=== PATIENT | female | born 1940 | race Caucasian/White ===

== ENCOUNTER 2016-03-28 09:51 | Outpatient (CLI) | payer MEDICARE, BC, OTHER | END 2016-03-28 09:52 | disposition home or self-care (01) | DX: I25.10 Atherosclerotic heart disease of native coronary artery without angina pectoris (principal); I10 Essential (primary) hypertension; E03.9 Hypothyroidism, unspecified; E78.5 Hyperlipidemia, unspecified ==

== ENCOUNTER 2016-04-25 13:18 | Outpatient (CLI) | payer MEDICARE, BC, OTHER | END 2016-04-25 13:19 | disposition home or self-care (01) | DX: Z12.31 Encounter for screening mammogram for malignant neoplasm of breast (principal) ==

== ENCOUNTER 2016-09-30 10:02 | Emergency (ER) | payer MEDICARE, BC, OTHER ==
[2016-09-30 10:14] VITALS: BP 162/90
--- NOTE | 2016-09-30 11:06 | XRAY Preliminary Report ---
Exam: XR Ribs w/PA Chest RT IMPRESSION: 1. Mild chronic scar at the left lung base. 2. Otherwise, unremarkable right rib radiography. [facility] SITE ID: [id number]
--- NOTE | 2016-09-30 11:08 | XRAY Report ---
EXAM: RIGHT RIB RADIOGRAPHY EXAM DATE: 09/30/2016 10:37 AM. CLINICAL HISTORY: Right side rib pain after fall COMPARISON: Chest radiography from 02/10/2016. TECHNIQUE: 1 view of the chest and 2 views of the ribs. FINDINGS: Bones: Normal. No fracture or bone lesion. Lungs: Mild chronic scar at the left lung base which is unchanged. No pneumothorax or pleural effusio n. No focal consolidation. Mediastinum: Heart and mediastinal contours are unremarkable. Other: None. IMPRESSION: 1. Mild chronic scar at the left lung base. 2. Otherwise, unremarkable right rib radiography. [facility] Referring Provider Line: [phone] SITE ID: [id number]
--- NOTE | 2016-09-30 12:57 | ED Physician Documentation ---
History of Present Illness - Stated complaint Stated Complaint: GLF - Chief complaint Chief Complaint: General - History obtained from History obtained from: Patient - History of Present Illness Timing: Other (She fell off her deck last night while gardening, her main complaint is right lower chest wall pain, she wonders if she broke a rib. She has pain with deep breathing. She also injured her right wrist. No other injuries.) Review of Systems Constitutional: denies: Fever, Chills Throat: denies: Dental pain / toothache, Sore throat Cardiac: denies: Palpitations, Pedal edema, Calf pain Respiratory: denies: Dyspnea, Cough PD PAST MEDICAL HISTORY - Past Medical History Cardiovascular: Deep vein thrombosis, [place] Respiratory: Other Endocrine/Autoimmune: HyPOthyroidism GI: GERD, Diverticulitis : None HEENT: Chronic hearing loss Psych: Anxiety, Claustrophobia Musculoskeletal: Osteoarthritis Derm: None - Past Surgical History Past Surgical History: Yes General: Cholecystectomy, Bowel surgery, Colonoscopy /APPLICATION HELPER: Hysterectomy Cardiovascular: Angioplasty HEENT: Cataracts - Present Medications Home Medications: Ambulatory Orders Medication Instructions Recorded Confirmed Aspirin Chewable [St [place] 81 mg PO DAILY 12/31/12 09/30/16 Aspirin] Buspirone HCl 10 mg PO TID 12/31/12 09/30/16 Escitalopram [Lexapro] 10 mg PO BID 12/31/12 09/30/16 LORazepam [Ativan] 1 mg PO ONCE PRN 12/31/12 09/30/16 Metoprolol Succinate [Toprol Xl] 25 mg PO BID 12/31/12 09/30/16 Simvastatin [Zocor] 20 mg PO QPM 12/31/12 09/30/16 Levothyroxine [Synthroid] 50 mcg PO QDAC 01/01/13 09/30/16 Omeprazole 40 mg PO DAILY 01/01/13 09/30/16 Timolol 0.5% Ophth Drops [Timoptic] 1 drops OPTH BID 01/01/13 09/30/16 Travoprost [Travatan Z] 0.004 ml OP DAILY 01/01/13 09/30/16 Oxycodone HCl/Acetaminophen 1 - 2 tab PO Q4H PRN #15 tablet 09/30/16 [Percocet 5-325 mg Tablet] Potassium Chloride [Micro-K] 10 meq PO PRN PRN 09/30/16 09/30/16 hydroCHLOROthiazide [Hydrodiuril] 25 mg PO PRN PRN 09/30/16 09/30/16 - Allergies Allergies/Adverse Reactions: Allergies Allergy/AdvReac Type Severity Reaction Status Date / Time phenytoin sodium * Allergy Intermediate Rash Unverified 12/31/12 13:03 [From Dilantin] phenytoin sodium extended * Allergy Intermediate Rash Unverified 12/31/12 13:02 [From Dilantin] Sulfa (Sulfonamide Allergy Intermediate Rash Unverified 12/31/12 13:02 Antibiotics) - Social History Does the pt smoke?: No Smoking Status: Unknown if ever smoked Does the pt drink ETOH?: No Does the pt have substance abuse?: No PD ED PE NORMAL - Vitals Vital signs reviewed: Yes - General General: Alert and oriented X 3, No acute distress - Neck Neck: Supple, no meningeal sign, No bony TTP - Respiratory Respiratory: No respiratory distress, Clear bilaterally, Other (Tender right lower anterior chest wall, no abdominal tenderness.) - Extremities Extremities: Other (Tender to the right distal radius more than the snuffbox with good range of motion at the wrist and no pain with axial loading of the right thumb.) - Neuro Neuro: Alert and oriented X 3, Normal speech - Psych Psych: Normal mood, Normal affect Results - Vitals Vitals: Vital Signs - 24 hr 09/30/16 10:10 Temperature 35.8 C L Heart Rate 82 Respiratory 22 Rate Blood Pressure 162/90 H O2 Saturation 95 Oxygen O2 Source Room air - Rads (name of study) R ribs and R wrist Radiology: EMP read contemporaneously (All neg) Departure - Departure Disposition: 01 Home, Self Care Clinical Impression: Right wrist sprain Qualifiers: Encounter type: initial encounter Qualified Code(s): S63.501A - Unspecified sprain of right wrist, initial encounter Contusion of right chest wall Qualifiers: Encounter type: initial encounter Qualified Code(s): S20.211A - Contusion of right front wall of thorax, initial encounter Fall Qualifiers: Encounter type: initial encounter Qualified Code(s): W19.XXXA - Unspecified fall, initial encounter Condition: Good Record reviewed to determine appropriate education?: Yes Instructions: ED Contusion Chest Wall Prescriptions: Oxycodone HCl/Acetaminophen [Percocet 5-325 mg Tablet] 1 - 2 tab PO Q4H PRN #15 tablet PRN Reason: Pain Comments: Call your doctor to arrange a follow-up appointment, make the next available appointment. In the interim, return anytime if worse or if new symptoms develop. Your blood pressure was elevated today on check into the emergency department. This does not mean that you have hypertension, it is a common phenomenon to come to the emergency department and have elevated blood pressure. I recommend that she see her primary care physician within the week to have it rechecked when you are feeling better. Do not drink or drive while taking narcotic pain medication. Note that many narcotic pain relievers also contain Tylenol/acetaminophen. Please ensure that your total dose of acetaminophen from all sources does not exceed 3 g (3000 mg) per day. You may get constipated while on this medication. Take a stool softener such as Colace twice a day while you are on it. Also add an [id number]-[id number] laxative such as senna or MiraLAX on any day that you do not have a bowel movement. If you received a narcotic pain medication or sedative while in the emergency department, do not drive for the next 24 hours.
--- NOTE | 2016-09-30 13:25 | XRAY Preliminary Report ---
Exam: XR Wrist 4 View RT IMPRESSION: Normal wrist radiography. [facility] SITE ID: [id number]
--- NOTE | 2016-09-30 13:32 | XRAY Report ---
EXAM: RIGHT WRIST RADIOGRAPHY EXAM DATE: 09/30/2016 12:58 PM. CLINICAL HISTORY: Pain after injury. COMPARISON: None. TECHNIQUE: 4 views. FINDINGS: Bones: Normal. No fractures or bone lesions. Joints: Normal. No subluxations. Soft Tissues: Normal. No soft tissue swelling. IMPRESSION: Normal wrist radiography. [facility] Referring Provider Line: [phone] SITE ID: [id number]
== END 2016-09-30 14:10 | disposition home or self-care (01) ==
LOC: ED 10:02
DX: S63.501A Unspecified sprain of right wrist, initial encounter (principal); S20.211A Contusion of right front wall of thorax, initial encounter; W01.0XXA Fall on same level from slipping, tripping and stumbling without subsequent striking against object, initial encounter; Y93.H2 Activity, gardening and landscaping; I25.2 Old myocardial infarction; R03.0 Elevated blood-pressure reading, without diagnosis of hypertension; Z86.718 Personal history of other venous thrombosis and embolism; Z79.82 Long term (current) use of aspirin; Z98.61 Coronary angioplasty status
CPT/HCPCS: 99283

== ENCOUNTER 2017-01-22 13:41 | Outpatient (CLI) | payer MEDICARE, BC, OTHER | END 2017-01-22 13:42 | disposition home or self-care (01) | LOC: DI 13:41 | PROVIDERS: ATTEND Family Medicine | DX: R06.09 Other forms of dyspnea (principal); I25.10 Atherosclerotic heart disease of native coronary artery without angina pectoris; G47.9 Sleep disorder, unspecified; I77.810 Thoracic aortic ectasia | CPT/HCPCS: 93306 ==

== ENCOUNTER 2017-01-22 13:43 | Outpatient (CLI) | payer MEDICARE, BC, OTHER ==
[2017-01-22] MEDS ORDERED: IOPAMIDOL-300 100 ML VIAL ONE (14:16)
[2017-01-22] MEDS ORDERED: IOPAMIDOL-300 100 ML VIAL IVP ONE (15:10)
--- NOTE | 2017-01-23 10:06 | CT Report ---
CT PULMONARY ANGIOGRAM: 01/22/2017 CLINICAL INDICATION: Dyspnea on exertion, history of pulmonary embolus. TECHNIQUE: Axial CT images of the chest were obtained with 80 mL Isovue-300 intravenously. Sagittal and coronal 3D reconstructions were performed. In accordance with CT protocol optimization, one or more of the following dose reduction techniques were utilized for this exam: automated exposure control, adjustment of mA and/or KV based on patient size, or use of iterative reconstructive technique. FINDINGS: The heart is not enlarged. The thoracic aorta demonstrates minimal atherosclerotic disease. There is segmental and subsegmental pulmonary embolus seen in the right upper lobe. The lungs demonstrate scattered atelectasis. No focal consolidation, effusion, or pneumothorax is present. Limited evaluation of upper abdominal structures demonstrates normal adrenal glands. Osseous structures demonstrate degenerative changes. IMPRESSION: SEGMENTAL AND SUBSEGMENTAL PULMONARY EMBOLI IN THE RIGHT UPPER LOBE. CRITICAL RESULT: RESULTS CALLED TO DR. DUTTON ON 01/23/2017 AT 10:40 A.M. JOB #: [id number] EXT JOB #: [id number] [facility]
== END 2017-01-22 13:44 | disposition home or self-care (01) ==
LOC: DI 13:43
PROVIDERS: ATTEND Family Medicine
DX: I26.99 Other pulmonary embolism without acute cor pulmonale (principal); R06.09 Other forms of dyspnea; I25.10 Atherosclerotic heart disease of native coronary artery without angina pectoris; G47.9 Sleep disorder, unspecified; I77.810 Thoracic aortic ectasia
CPT/HCPCS: 71260; 93306; Q9967

== ENCOUNTER 2017-04-21 12:18 | Outpatient (CLI) | payer MEDICARE, BC, OTHER ==
--- NOTE | 2017-04-22 17:27 | Mammography Report ---
DATE OF SERVICE: 04/21/2017 DIGITAL SCREENING MAMMOGRAM: 04/21/2017 CLINICAL INDICATION: A 77-year-old with history of benign cyst excision for screening. COMPARISON: 04/2016, 04/2015, 04/2013, 04/2012, 04/2010. TECHNIQUE: Routine CC and MLO projections were obtained of the breasts. FINDINGS: The breasts demonstrate scattered fibroglandular densities bilaterally. Coarse, typically benign calcifications are present. No suspicious masses, clustered microcalcifications, or regions of architectural distortion are identified. IMPRESSION: BENIGN FINDINGS. RECOMMENDATIONS: Routine annual screening unless otherwise clinically indicated. BIRADS category 2 benign findings. STANDARD QUALIFYING STATEMENTS 1. This examination was reviewed with the aid of Computed-Aided Detection (CAD). 2. A negative or benign imaging report should not delay biopsy if clinically suspicious findings are present. Consider surgical consultation if warranted. More than 5% of cancers are not identified by imaging. 3. Dense breasts may obscure an underlying neoplasm. TD: 04/22/2017 17:25
== END 2017-04-21 12:19 | disposition home or self-care (01) ==
LOC: DI 12:18
PROVIDERS: ATTEND Family Medicine
DX: Z12.31 Encounter for screening mammogram for malignant neoplasm of breast (principal)
CPT/HCPCS: 77067

== ENCOUNTER 2017-12-15 07:01 | Day surgery (SDC) | payer MEDICARE, BC, OTHER ==
[2017-12-15] MEDS ORDERED: LACTATED RINGERS 1,000 ML IV ONE (07:09)
[2017-12-15] MEDS ORDERED: fentaNYL 250 MCG/5 ML VIAL IVP ONE (08:40)
[2017-12-15] MEDS ORDERED: MIDAZOLAM 2 MG/2 ML VIAL IVP ONE (08:40)
[2017-12-15 09:50] VITALS: BP 110/64
== END 2017-12-15 07:02 | disposition home or self-care (01) ==
LOC: SDS 07:01
PROVIDERS: ATTEND Surgery
PROC: 0DJD8ZZ Inspection of Lower Intestinal Tract, Via Natural or Artificial Opening Endoscopic (ICD-10-PCS; principal; 2017-12-15 08:30)
DX: Z12.11 Encounter for screening for malignant neoplasm of colon (principal); K64.8 Other hemorrhoids; K57.30 Diverticulosis of large intestine without perforation or abscess without bleeding; Z86.010 Personal history of colon polyps; Z85.038 Personal history of other malignant neoplasm of large intestine; Z79.01 Long term (current) use of anticoagulants; Z80.0 Family history of malignant neoplasm of digestive organs; Z87.891 Personal history of nicotine dependence; E66.9 Obesity, unspecified; Z68.35 Body mass index [BMI] 35.0-35.9, adult
CPT/HCPCS: G0105; J3010; J7120

== ENCOUNTER 2018-11-19 08:00 | Outpatient (CLI) | payer MEDICARE, BC, OTHER ==
[2018-11-19 12:44] LABS: BASOPHILS # (AUTO) 0.1 10^3/uL (0.0-0.1); EOSINOPHILS # (AUTO) 0.3 10^3/uL (0.0-0.7); EOSINOPHILS % (AUTO) 4.7 %; HGB - HEMOGLOBIN 15.3 g/dL (12.0-16.0); LYMPHOCYTES # (AUTO) 1.9 10^3/uL (1.5-3.5); LYMPHOCYTES % (AUTO) 26.9 %; MEAN CORPUSCULAR HEMOGLOBIN 31.7 pg (27.0-31.0); MEAN CORPUSCULAR HGB CONC 32.3 g/dL (32.0-36.0); MEAN CORPUSCULAR VOLUME 98.1 fL (81.0-99.0); MEAN PLATELET VOLUME 11.5 fL (7.9-10.8); MONOCYTES # (AUTO) 0.7 10^3/uL (0.0-1.0); MONOCYTES % (AUTO) 9.5 %; NEUTROPHILS # (AUTO) 4.1 10^3/uL (1.5-6.6); NEUTROPHILS % (AUTO) 57.3 %; PLT - PLATELET COUNT 189 10^3/uL (130-450); RED BLOOD COUNT 4.82 10^6/uL (4.20-5.40); RED CELL DISTRIBUTION WIDTH 13.3 % (12.0-15.0); WHITE BLOOD COUNT 7.2 x10^3/uL (4.8-10.8)
[2018-11-19 13:08] LABS: ALBUMIN 4.1 g/dL (3.2-5.5); ALBUMIN/GLOBULIN RATIO 1.7 (1.0-2.2); ALKALINE PHOSPHATASE 56 IU/L (42-121); ALT ALANINE AMINOTRANSFERASE 46 IU/L (10-60); AST ASPARTATE AMINOTRANSFERASE 26 IU/L (10-42); BILIRUBIN,TOTAL 0.7 mg/dL (0.2-1.0); BUN - BLOOD UREA NITROGEN 21 mg/dL (6-20); CALCIUM 9.4 mg/dL (8.5-10.3); CARBON DIOXIDE - CO2 28 mmol/L (21-32); CHLORIDE 103 mmol/L (101-111); CHOL/HDL RATIO 3.2 (<4.4); CHOLESTEROL 163 mg/dL; CREATININE 0.8 mg/dL (0.4-1.0); GFR - MDRD 69 (>89); GLUCOSE 108 mg/dL (70-100); HDL CHOLESTEROL 51 mg/dL; LDL CHOLESTEROL,CALCULATED 58 mg/dL; LDL/HDL RATIO 1.1 (<4.4); SODIUM 141 mmol/L (135-145); TOTAL PROTEIN 6.5 g/dL (6.7-8.2); VLDL CHOLESTEROL 54 mg/dL
== END 2018-11-19 23:59 | disposition home or self-care (01) ==
LOC: LAB.WCP 08:00
PROVIDERS: ATTEND Family Medicine
DX: I10 Essential (primary) hypertension (principal); E88.81 Metabolic syndrome and other insulin resistance; I25.10 Atherosclerotic heart disease of native coronary artery without angina pectoris; E78.5 Hyperlipidemia, unspecified
CPT/HCPCS: 36415; 80053; 80061; 83721; 84443; 85025

== ENCOUNTER 2018-11-25 11:59 | Outpatient (CLI) | payer MEDICARE, BC, OTHER ==
--- NOTE | 2018-11-26 10:29 | XRAY Report ---
Reason: KNEE PAIN,RIGHT..STANDING Procedure Date: 11/25/2018 Accession Number: [id number] / [id number] Procedure: XR - Knee 2 View RT CPT Code: FULL RESULT: EXAM: RIGHT KNEE RADIOGRAPHY EXAM DATE: 11/25/2018 01:26 PM. CLINICAL HISTORY: KNEE Pain, right. . STANDING. COMPARISON: None. TECHNIQUE: 2 views. FINDINGS: Bones: Normal. No fractures or bone lesions. Joints: Moderate tricompartment degenerative changes with joint space loss and osteophytosis. No effusion. No subluxations. Soft Tissues: Normal. No soft tissue swelling. IMPRESSION: Moderate tricompartment degenerative changes. [facility]
== END 2018-11-25 12:00 | disposition home or self-care (01) ==
LOC: DI 11:59
PROVIDERS: ATTEND Family Medicine
DX: M17.11 Unilateral primary osteoarthritis, right knee (principal)

== ENCOUNTER 2020-04-07 08:36 | Outpatient (CLI) | payer MEDICARE, BC, OTHER ==
[2020-04-07 11:44] LABS: BASOPHILS # (AUTO) 0.1 10^3/uL (0.0-0.1); BASOPHILS % (AUTO) 0.8 %; EOSINOPHILS # (AUTO) 0.4 10^3/uL (0.0-0.7); EOSINOPHILS % (AUTO) 4.8 %; HGB - HEMOGLOBIN 15.4 g/dL (12.0-16.0); LYMPHOCYTES # (AUTO) 1.7 10^3/uL (1.5-3.5); LYMPHOCYTES % (AUTO) 20.2 %; MEAN CORPUSCULAR HEMOGLOBIN 29.4 pg (27.0-31.0); MEAN CORPUSCULAR HGB CONC 30.6 g/dL (32.0-36.0); MEAN CORPUSCULAR VOLUME 96.2 fL (81.0-99.0); MEAN PLATELET VOLUME 11.3 fL (7.9-10.8); MONOCYTES # (AUTO) 0.6 10^3/uL (0.0-1.0); MONOCYTES % (AUTO) 7.2 %; NEUTROPHILS # (AUTO) 5.7 10^3/uL (1.5-6.6); NEUTROPHILS % (AUTO) 66.5 %; PLT - PLATELET COUNT 208 10^3/uL (130-450); RED BLOOD COUNT 5.23 10^6/uL (4.20-5.40); RED CELL DISTRIBUTION WIDTH 14.3 % (12.0-15.0); WHITE BLOOD COUNT 8.5 x10^3/uL (4.8-10.8)
[2020-04-07 12:27] LABS: ALBUMIN/GLOBULIN RATIO 1.6 (1.0-2.2); ALKALINE PHOSPHATASE 62 IU/L (42-121); ALT ALANINE AMINOTRANSFERASE 40 IU/L (10-60); AST ASPARTATE AMINOTRANSFERASE 27 IU/L (10-42); BILIRUBIN,TOTAL 0.9 mg/dL (0.2-1.0); BUN - BLOOD UREA NITROGEN 19 mg/dL (6-20); CALCIUM 9.5 mg/dL (8.5-10.3); CARBON DIOXIDE - CO2 28 mmol/L (21-32); CHLORIDE 104 mmol/L (101-111); CHOL/HDL RATIO 2.9 (<4.4); CHOLESTEROL 149 mg/dL; CREATININE 0.9 mg/dL (0.4-1.0); GLUCOSE 159 mg/dL (70-100); HDL CHOLESTEROL 51 mg/dL; LDL CHOLESTEROL,CALCULATED 56 mg/dL; LDL/HDL RATIO 1.1 (<4.4); TOTAL PROTEIN 6.5 g/dL (6.7-8.2); VLDL CHOLESTEROL 42 mg/dL
[2020-04-07 13:33] LABS: FREE T4 (FREE THYROXINE) 0.85 ng/dL (0.58-1.64)
== END 2020-04-07 23:59 | disposition home or self-care (01) ==
LOC: LAB.WCP 08:36
PROVIDERS: ATTEND Internal Medicine
DX: D68.59 Other primary thrombophilia (principal); R09.02 Hypoxemia; E88.81 Metabolic syndrome and other insulin resistance; I10 Essential (primary) hypertension; E03.9 Hypothyroidism, unspecified; E78.5 Hyperlipidemia, unspecified
CPT/HCPCS: 36415; 80053; 80061; 83721; 84439; 84443; 85025

== ENCOUNTER 2020-04-07 09:51 | Outpatient (CLI) | payer MEDICARE, BC, OTHER ==
--- NOTE | 2020-04-07 13:38 | XRAY Report ---
PROCEDURE: Chest 2 View X-Ray INDICATIONS: COPD TECHNIQUE: 2 view(s) of the chest. COMPARISON: Chest x-ray 02/10/2016, CT chest 02/02/1917 FINDINGS: Surgical changes and devices: None. Lungs and pleura: No pleural effusions or pneumothorax. Lungs are clear. Mild hyperexpansion. Mediastinum: Mediastinal contours are normal. Heart size is normal. Bones and chest wall: No suspicious bony abnormalities. Soft tissues appear unremarkable. IMPRESSION: No acute pulmonary process. Reviewed by: Amber Macario MD on 04/07/2020 1:[address] [facility] Approved by: Amber Macario MD on 04/07/2020 1:[address] [facility] Station ID: [id number]
== END 2020-04-07 23:59 ==
LOC: DI.WCP 09:51
PROVIDERS: ATTEND Internal Medicine
DX: J44.9 Chronic obstructive pulmonary disease, unspecified (principal); D68.59 Other primary thrombophilia; R09.02 Hypoxemia; E88.81 Metabolic syndrome and other insulin resistance; I10 Essential (primary) hypertension; E03.9 Hypothyroidism, unspecified; E78.5 Hyperlipidemia, unspecified
CPT/HCPCS: 36415; 80053; 80061; 83721; 84439; 84443; 85025

== ENCOUNTER 2020-04-13 11:39 | Outpatient (CLI) | payer MEDICARE, BC, OTHER | END 2020-04-13 11:40 | disposition home or self-care (01) | LOC: DI 11:39 | PROVIDERS: ATTEND Internal Medicine | DX: I25.10 Atherosclerotic heart disease of native coronary artery without angina pectoris (principal) | CPT/HCPCS: 93306 ==

== ENCOUNTER 2020-04-17 07:00 | Outpatient (CLI) | payer MEDICARE, BC, OTHER ==
[2020-04-17 18:04] LABS: CALCIUM 9.6 mg/dL (8.5-10.3); CREATININE 0.9 mg/dL (0.4-1.0)
[2020-04-17 20:13] LABS: HEMOGLOBIN A1c% 6.7 % (4.27-6.07)
== END 2020-04-17 23:59 | disposition home or self-care (01) ==
LOC: LAB.WCP 07:00
PROVIDERS: ATTEND Internal Medicine
DX: R73.01 Impaired fasting glucose (principal)
CPT/HCPCS: 36415; 80048; 83036

== ENCOUNTER 2020-04-21 13:06 | Outpatient (CLI) | payer MEDICARE, BC, OTHER | END 2020-04-21 13:07 | disposition home or self-care (01) | LOC: RT 13:06 | PROVIDERS: ATTEND Internal Medicine | DX: J44.9 Chronic obstructive pulmonary disease, unspecified (principal); R05 Cough | CPT/HCPCS: 94060; 94729 ==

== ENCOUNTER 2020-08-02 08:00 | Outpatient (CLI) | payer MEDICARE, BC, OTHER ==
[2020-08-02 12:07] LABS: BASOPHILS # (AUTO) 0.1 10^3/uL (0.0-0.1); BASOPHILS % (AUTO) 0.6 %; EOSINOPHILS # (AUTO) 0.3 10^3/uL (0.0-0.7); EOSINOPHILS % (AUTO) 3.3 %; HCT - HEMATOCRIT 49.3 % (37.0-47.0); HGB - HEMOGLOBIN 15.5 g/dL (12.0-16.0); LYMPHOCYTES # (AUTO) 1.8 10^3/uL (1.5-3.5); LYMPHOCYTES % (AUTO) 18.5 %; MEAN CORPUSCULAR HGB CONC 31.4 g/dL (32.0-36.0); MEAN CORPUSCULAR VOLUME 95.4 fL (81.0-99.0); MEAN PLATELET VOLUME 11.4 fL (7.9-10.8); MONOCYTES # (AUTO) 0.8 10^3/uL (0.0-1.0); NEUTROPHILS # (AUTO) 6.6 10^3/uL (1.5-6.6); NEUTROPHILS % (AUTO) 69.3 %; PLT - PLATELET COUNT 239 10^3/uL (130-450); RED BLOOD COUNT 5.17 10^6/uL (4.20-5.40); WHITE BLOOD COUNT 9.5 x10^3/uL (4.8-10.8)
[2020-08-02 12:52] LABS: THYROID STIMULATING HORMONE 4.62 uIU/mL (0.34-5.60)
[2020-08-02 12:57] LABS: ALBUMIN 3.9 g/dL (3.2-5.5); ALBUMIN/GLOBULIN RATIO 1.5 (1.0-2.2); ALKALINE PHOSPHATASE 63 IU/L (42-121); ALT ALANINE AMINOTRANSFERASE 38 IU/L (10-60); AST ASPARTATE AMINOTRANSFERASE 23 IU/L (10-42); BILIRUBIN,TOTAL 0.9 mg/dL (0.2-1.0); BUN - BLOOD UREA NITROGEN 14 mg/dL (6-20); CALCIUM 9.5 mg/dL (8.5-10.3); CARBON DIOXIDE - CO2 27 mmol/L (21-32); CHLORIDE 103 mmol/L (101-111); CHOL/HDL RATIO 2.9 (<4.4); CHOLESTEROL 140 mg/dL; CREATININE 0.9 mg/dL (0.4-1.0); GFR - MDRD 60 (>89); GLUCOSE 136 mg/dL (70-100); HDL CHOLESTEROL 49 mg/dL; LDL CHOLESTEROL,CALCULATED 51 mg/dL; POTASSIUM 4.1 mmol/L (3.5-5.0); SODIUM 141 mmol/L (135-145); TOTAL PROTEIN 6.5 g/dL (6.7-8.2); TRIGLYCERIDES 201 mg/dL; VLDL CHOLESTEROL 40 mg/dL
[2020-08-02 13:01] LABS: CREATININE,URINE 190.5 mg/dL; MICROALBUM/CREATININE RATIO,UR 5.2 ug/mg (<30.0)
[2020-08-02 13:53] LABS: ESTIMATED AVERAGE GLUCOSE 151 mg/dL (70-100); HEMOGLOBIN A1c% 6.9 % (4.27-6.07)
== END 2020-08-02 23:59 | disposition home or self-care (01) ==
LOC: LAB.WCP 08:00
PROVIDERS: ATTEND Family Medicine
DX: E11.9 Type 2 diabetes mellitus without complications (principal)
CPT/HCPCS: 36415; 80053; 80061; 82043; 82570; 83036; 83721; 84443; 85025

== ENCOUNTER 2020-08-28 11:22 | Outpatient (CLI) | payer MEDICARE, BC, OTHER ==
--- NOTE | 2020-08-28 14:16 | XRAY Report ---
PROCEDURE: Knee 3 View LT INDICATIONS: ARTHRITIS, L KNEE TECHNIQUE: 3 views of the left knee(s) were acquired. COMPARISON: None. FINDINGS: Bones: No fractures or dislocations. Moderate to severe tricompartmental osteoarthritis is seen more prominent in medial femoral tibial compartment. No suspicious bony lesions. Soft tissues: No joint effusion. No suspicious soft tissue calcifications. IMPRESSION: Moderate to severe tricompartmental osteoarthritis in left knee as above. No fracture or dislocation. No significant joint effusion. Reviewed by: Rayray Monique MD on 08/28/2020 2:14 PM PDT Approved by: Rayray Monique MD on 08/28/2020 2:14 PM PDT Station ID: [id number]
== END 2020-08-28 23:59 | disposition home or self-care (01) ==
LOC: DI.N 11:22
PROVIDERS: ATTEND Family Medicine
DX: M17.12 Unilateral primary osteoarthritis, left knee (principal)

== ENCOUNTER 2020-10-30 08:00 | Outpatient (CLI) | payer MEDICARE, BC, OTHER | END 2020-10-30 23:59 | disposition home or self-care (01) | LOC: LAB.WCP 08:00 | PROVIDERS: ATTEND Internal Medicine | DX: Z53.9 Procedure and treatment not carried out, unspecified reason (principal) ==

== ENCOUNTER 2020-12-25 11:17 | Outpatient (CLI) | payer MEDICARE, BC, OTHER ==
[2020-12-25 17:56] LABS: BASOPHILS # (AUTO) 0.1 10^3/uL (0.0-0.1); BASOPHILS % (AUTO) 0.7 %; EOSINOPHILS # (AUTO) 0.3 10^3/uL (0.0-0.7); EOSINOPHILS % (AUTO) 3.4 %; HCT - HEMATOCRIT 53.6 % (37.0-47.0); HGB - HEMOGLOBIN 16.1 g/dL (12.0-16.0); LYMPHOCYTES # (AUTO) 1.8 10^3/uL (1.5-3.5); LYMPHOCYTES % (AUTO) 19.6 %; MEAN CORPUSCULAR HEMOGLOBIN 29.8 pg (27.0-31.0); MEAN CORPUSCULAR VOLUME 99.1 fL (81.0-99.0); MEAN PLATELET VOLUME 11.8 fL (7.9-10.8); MONOCYTES # (AUTO) 0.7 10^3/uL (0.0-1.0); MONOCYTES % (AUTO) 7.9 %; NEUTROPHILS # (AUTO) 6.4 10^3/uL (1.5-6.6); PLT - PLATELET COUNT 221 10^3/uL (130-450); RED BLOOD COUNT 5.41 10^6/uL (4.20-5.40); RED CELL DISTRIBUTION WIDTH 15.1 % (12.0-15.0); WHITE BLOOD COUNT 9.4 x10^3/uL (4.8-10.8)
[2020-12-25 18:50] LABS: CALCIUM 9.6 mg/dL (8.5-10.3); CREATININE 0.9 mg/dL (0.4-1.0); POTASSIUM 4.4 mmol/L (3.5-5.0)
[2020-12-25 20:44] LABS: ESTIMATED AVERAGE GLUCOSE 154 mg/dL (70-100)
== END 2020-12-25 23:59 | disposition home or self-care (01) ==
LOC: LAB.WCP 11:17
PROVIDERS: ATTEND Internal Medicine
DX: E11.9 Type 2 diabetes mellitus without complications (principal)
CPT/HCPCS: 36415; 80048; 83036; 85025

== ENCOUNTER 2021-05-08 09:42 | Outpatient (CLI) | payer MEDICARE, BC, OTHER ==
[2021-05-08 12:28] LABS: CALCIUM 9.8 mg/dL (8.5-10.3); CREATININE 0.9 mg/dL (0.4-1.0); POTASSIUM 4.1 mmol/L (3.5-5.0)
[2021-05-08 12:44] LABS: ESTIMATED AVERAGE GLUCOSE 163 mg/dL (70-100); HEMOGLOBIN A1c% 7.3 % (4.27-6.07)
== END 2021-05-08 09:43 | disposition home or self-care (01) ==
LOC: LAB.N 09:42
PROVIDERS: ATTEND Internal Medicine
DX: E11.9 Type 2 diabetes mellitus without complications (principal)
CPT/HCPCS: 36415; 80048; 83036

== ENCOUNTER 2021-09-03 10:15 | Outpatient (CLI) | payer MEDICARE, BC, OTHER ==
[2021-09-03 12:08] LABS: BASOPHILS # (AUTO) 0.1 10^3/uL (0.0-0.1); BASOPHILS % (AUTO) 0.6 %; EOSINOPHILS # (AUTO) 0.3 10^3/uL (0.0-0.7); EOSINOPHILS % (AUTO) 3.1 %; HCT - HEMATOCRIT 53.2 % (37.0-47.0); HGB - HEMOGLOBIN 16.4 g/dL (12.0-16.0); LYMPHOCYTES # (AUTO) 1.7 10^3/uL (1.5-3.5); LYMPHOCYTES % (AUTO) 17.2 %; MEAN CORPUSCULAR HEMOGLOBIN 29.8 pg (27.0-31.0); MEAN CORPUSCULAR HGB CONC 30.8 g/dL (32.0-36.0); MEAN CORPUSCULAR VOLUME 96.7 fL (81.0-99.0); MEAN PLATELET VOLUME 11.4 fL (7.9-10.8); MONOCYTES # (AUTO) 0.9 10^3/uL (0.0-1.0); NEUTROPHILS # (AUTO) 6.7 10^3/uL (1.5-6.6); NEUTROPHILS % (AUTO) 69.8 %; PLT - PLATELET COUNT 208 10^3/uL (130-450); RED CELL DISTRIBUTION WIDTH 15.5 % (12.0-15.0); WHITE BLOOD COUNT 9.7 x10^3/uL (4.8-10.8)
[2021-09-03 12:19] LABS: ALBUMIN 4.2 g/dL (3.2-5.5); ALBUMIN/GLOBULIN RATIO 1.4 (1.0-2.2); ALKALINE PHOSPHATASE 71 IU/L (42-121); ALT ALANINE AMINOTRANSFERASE 29 IU/L (10-60); AST ASPARTATE AMINOTRANSFERASE 19 IU/L (10-42); BILIRUBIN,TOTAL 0.5 mg/dL (0.2-1.0); BUN - BLOOD UREA NITROGEN 25 mg/dL (6-20); CARBON DIOXIDE - CO2 32 mmol/L (21-32); CHLORIDE 101 mmol/L (101-111); CHOL/HDL RATIO 3.4 (<4.4); CHOLESTEROL 163 mg/dL; CREATININE 0.9 mg/dL (0.4-1.0); GFR - MDRD 60 (>89); GLUCOSE 147 mg/dL (70-100); HDL CHOLESTEROL 48 mg/dL; LDL CHOLESTEROL,CALCULATED 68 mg/dL; LDL/HDL RATIO 1.4 (<4.4); POTASSIUM 4.4 mmol/L (3.5-5.0); SODIUM 142 mmol/L (135-145); THYROID STIMULATING HORMONE 3.61 uIU/mL (0.34-5.60); TOTAL PROTEIN 7.1 g/dL (6.7-8.2); TRIGLYCERIDES 235 mg/dL; VLDL CHOLESTEROL 47 mg/dL
[2021-09-03 13:24] LABS: ESTIMATED AVERAGE GLUCOSE 160 mg/dL (70-100); HEMOGLOBIN A1c% 7.2 % (4.27-6.07)
[2021-09-03 17:33] LABS: MICROALBUM/CREATININE RATIO,UR 4.8 ug/mg (<30.0); MICROALBUMIN,URINE 0.6 mg/dL (0-300.0)
== END 2021-09-03 10:16 | disposition home or self-care (01) ==
LOC: LAB.N 10:15
PROVIDERS: ATTEND Internal Medicine
DX: E11.9 Type 2 diabetes mellitus without complications (principal); E78.5 Hyperlipidemia, unspecified; E03.9 Hypothyroidism, unspecified
CPT/HCPCS: 36415; 80053; 80061; 82043; 82570; 83036; 83721; 84443; 85025

== ENCOUNTER 2022-02-12 10:20 | Outpatient (CLI) | payer MEDICARE, BC, OTHER ==
[2022-02-12 12:06] LABS: BASOPHILS # (AUTO) 0.1 10^3/uL (0.0-0.1); BASOPHILS % (AUTO) 0.6 %; EOSINOPHILS # (AUTO) 0.2 10^3/uL (0.0-0.7); EOSINOPHILS % (AUTO) 2.1 %; HCT - HEMATOCRIT 52.9 % (37.0-47.0); HGB - HEMOGLOBIN 16.2 g/dL (12.0-16.0); LYMPHOCYTES # (AUTO) 1.9 10^3/uL (1.5-3.5); LYMPHOCYTES % (AUTO) 18.9 %; MEAN CORPUSCULAR HEMOGLOBIN 30.1 pg (27.0-31.0); MEAN CORPUSCULAR HGB CONC 30.6 g/dL (32.0-36.0); MEAN CORPUSCULAR VOLUME 98.3 fL (81.0-99.0); MEAN PLATELET VOLUME 11.5 fL (7.9-10.8); NEUTROPHILS # (AUTO) 6.6 10^3/uL (1.5-6.6); PLT - PLATELET COUNT 196 10^3/uL (130-450); RED BLOOD COUNT 5.38 10^6/uL (4.20-5.40); RED CELL DISTRIBUTION WIDTH 14.8 % (12.0-15.0); WHITE BLOOD COUNT 9.8 x10^3/uL (4.8-10.8)
[2022-02-12 12:29] LABS: ALBUMIN 3.8 g/dL (3.2-5.5); ALBUMIN/GLOBULIN RATIO 1.3 (1.0-2.2); ALKALINE PHOSPHATASE 61 IU/L (42-121); ALT ALANINE AMINOTRANSFERASE 30 IU/L (10-60); AST ASPARTATE AMINOTRANSFERASE 21 IU/L (10-42); BILIRUBIN,TOTAL 0.9 mg/dL (0.2-1.0); BUN - BLOOD UREA NITROGEN 18 mg/dL (6-20); CALCIUM 9.9 mg/dL (8.5-10.3); CARBON DIOXIDE - CO2 31 mmol/L (21-32); CHLORIDE 100 mmol/L (101-111); CHOLESTEROL 136 mg/dL; CREATININE 0.9 mg/dL (0.4-1.0); GFR - MDRD 60 (>89); GLUCOSE 135 mg/dL (70-100); HDL CHOLESTEROL 46 mg/dL; LDL CHOLESTEROL,CALCULATED 53 mg/dL; LDL/HDL RATIO 1.2 (<4.4); POTASSIUM 4.4 mmol/L (3.5-5.0); SODIUM 140 mmol/L (135-145); TOTAL PROTEIN 6.8 g/dL (6.7-8.2); TRIGLYCERIDES 186 mg/dL; VLDL CHOLESTEROL 37 mg/dL
[2022-02-12 12:37] LABS: THYROID STIMULATING HORMONE 5.24 uIU/mL (0.34-5.60)
== END 2022-02-12 10:21 | disposition home or self-care (01) ==
LOC: LAB.N 10:20
PROVIDERS: ATTEND Internal Medicine
DX: I10 Essential (primary) hypertension (principal); E78.5 Hyperlipidemia, unspecified; E11.9 Type 2 diabetes mellitus without complications
CPT/HCPCS: 36415; 80053; 80061; 81599; 82043; 82570; 83036; 83721; 84443; 85025

== ENCOUNTER 2022-02-12 18:00 | Outpatient (CLI) | payer MEDICARE, BC, OTHER ==
[2022-02-13 19:21] LABS: CREATININE,URINE 97.7 mg/dL; MICROALBUMIN,URINE 0.2 mg/dL (0-300.0)
== END 2022-02-12 23:59 | disposition home or self-care (01) ==
LOC: LAB.N 18:00
PROVIDERS: ATTEND Internal Medicine
DX: E11.9 Type 2 diabetes mellitus without complications (principal); I10 Essential (primary) hypertension; E78.5 Hyperlipidemia, unspecified
CPT/HCPCS: 36415; 80053; 80061; 81599; 82043; 82570; 83036; 83721; 84443; 85025

== ENCOUNTER 2022-02-21 18:00 | Outpatient (CLI) | payer MEDICARE, BC, OTHER | END 2022-02-21 23:59 | disposition home or self-care (01) | LOC: LAB.N 18:00 | PROVIDERS: ATTEND Internal Medicine | DX: R19.7 Diarrhea, unspecified (principal) | CPT/HCPCS: 87045; 87046; 87329; 87427; 87493 ==

== ENCOUNTER 2022-04-30 12:15 | Outpatient (CLI) | payer MEDICARE, BC, OTHER ==
--- NOTE | 2022-05-01 11:37 | Mammography Report ---
BILATERAL DIGITAL SCREENING MAMMOGRAM: 04/30/2022 CLINICAL: Routine screening. Comparison is made to exams dated: 04/21/2017 mammogram, 04/25/2016 mammogram, 05/11/2015 mammogram, 05/05 mammogram, and 05/04/2012 mammogram - [facility]. Both breasts are almost entirely fatty (category a/<25% glandular tissue). No significant masses, calcifications, or other findings are seen in either breast. There has been no significant interval change. IMPRESSION: NEGATIVE There is no mammographic evidence of malignancy. A 1 year screening mammogram is recommended. Based on the Tyrer Cuzick model (a risk assessment model) the patients lifetime risk is 0.1% and her 10 year risk is 0.0%. According to the ACR, ACS, and NCCN guidelines, an annual breast MRI exam ananth g with mammogram is recommended if the patients lifetime risk is 20% or greater. This exam was interpreted at Station ID: [id number]. NOTE: For mammograms, a report in lay terms will be sent to the patient. Approximately 15% of breast malignancies will not be visualized mammographically. In the management of a palpable breast mass, a negative mammogram must not discourage biopsy of a clinically suspicious lesion. Electronically Signed By: Thomas Alamo M.D., jr/lin:04/30/2022 15:13:44 ACR BI-RADS Category 1: Negative 3341F PARENCHYMAL PATTERN: (F) - The breast(s) demonstrate(s) diffuse fatty replacement. BI-RADS CATEGORY: (1) - 1 RECOMMENDATION: (ANNUAL) - Recommend routine annual screening mammography. [id number] 1 year screening LATERALITY: (B)
== END 2022-04-30 12:16 | disposition home or self-care (01) ==
LOC: DI.N 12:15
DX: Z12.31 Encounter for screening mammogram for malignant neoplasm of breast (principal)

== ENCOUNTER 2022-07-25 07:34 | Day surgery (SDC) | payer MEDICARE, BC, OTHER ==
[~2022-07-25 07:34] MED LIST: CYCLOPENTOLATE 1% OPHTH DROPS 2 ML ONE; KETOROLAC 0.45% OPHTH DROPS ONE; PHENYLEPHRINE 2.5% OPHTH 2 ML DROPS ONE
[2022-07-25] MEDS ORDERED: LACTATED RINGERS 1,000 ML IV ONE ×2 (07:53→09:31)
[2022-07-25] MEDS ORDERED: PROPARACAINE 0.5% OPHTH DROPS 15 ML RIGHTEYE ONE (08:31)
--- NOTE | 2022-07-25 08:49 | ANESTHESIA ---
Pre-Anesthesia VS, & Labs - Diagnosis right senile combined catarat - Procedure right cataract with IOL Vital Signs: Temp Pulse Resp BP Pulse Ox O2 Flow Rate 36.3 C L 73 16 158/79 H 93 3 07/25/22 08:15 07/25/22 08:15 07/25/22 08:15 07/25/22 08:15 07/25/22 08:15 07/25/22 08:15 Height: 5 ft 1 in Weight (kg): 113.4 kg Body Mass Index: 47.2 BMI Classification: Morbidly Obese - NPO >8 hours - Is Patient ?: No Home Medications and Allergies Buspirone HCl 10 mg PO TID 12/31/12 Metoprolol Succinate [Toprol Xl] 25 mg PO BID 12/31/12 Levothyroxine [Synthroid] 50 mcg PO QDAC 01/01/13 Omeprazole 20 mg PO DAILY 01/01/13 Timolol 0.5% Ophth Drops [Timoptic] 1 drops OPTH BID 01/01/13 Travoprost [Travatan Z] 0.004 ml OP DAILY 01/01/13 Escitalopram [Lexapro] 20 mg PO DAILY 12/12/17 Albuterol 2.5 mg INH Q4H PRN 05/29/20 Atorvastatin [Lipitor] 20 mg PO DAILY 05/29/20 Fluticasone Propion/Salmeterol [Fluticasone-Salmeterol 250-50] 1 puffs IN BID 05/29/20 LORazepam [Ativan] 1 mg PO PRN PRN 05/29/20 Mirtazapine [Remeron] 7.5 mg PO DAILY 05/29/20 Rivaroxaban [Xarelto] 20 mg PO DAILY 05/29/20 Spironolactone [Aldactone] 25 mg PO DAILY 05/29/20 Tiotropium [place] [Spiriva] 1 puffs INH DAILY 05/29/20 Allergies/Adverse Reactions: Allergies Allergy/AdvReac Type Severity Reaction Status Date / Time phenytoin sodium * Allergy Intermediate Rash Verified 07/25/22 08:44 [From Dilantin] phenytoin sodium extended * Allergy Intermediate Rash Verified 07/25/22 08:44 [From Dilantin] Sulfa (Sulfonamide Allergy Intermediate Rash Verified 07/25/22 08:44 Antibiotics) Anes History & Medical History - Anesthetic History Anesthesia Complications: reports: No previous complications - Medical History Cardiovascular: reports: Hypertension, High cholesterol, Pulmonary embolism, [place] Pulmonary: reports: Sleep apnea, Other (o2 dependent 4L/min) Gastrointestinal: reports: GERD, Hiatal hernia, Diverticulitis, Other Urinary: reports: None Musculoskeletal: reports: Osteoarthritis Endocrine/Autoimmune: reports: HyPOthyroidism Blood Disorders: reports: Anemia Skin: reports: None Smoking Status: Never smoker - Surgical History General: reports: Cholecystectomy, Bowel surgery, Colonoscopy Eyes Ears Nose Throat (EENT): reports: Cataracts Cardiothoracic: reports: Angioplasty Gynecologic: reports: Hysterectomy Exam General: Alert, Oriented x3, Cooperative Dental: WNL Mouth Opening: Greater than 4 Fingerbreadths Neck Mobility: Normal Mallampati classification: II Respiratory: Lungs clear, Decreased breath sounds Cardiovascular: Regular rate, Normal S1, Normal S2 Plan Anesthesia Type: MAC Consent for Procedure(s) Verified and Reviewed: Yes Code Status: Attempt Resuscitation ASA classification: 4-Incapacitating disease Is this case an emergency?: No
[2022-07-25] MEDS ORDERED: MIDAZOLAM 2 MG/2 ML VIAL ONE (08:55)
[2022-07-25] MEDS ORDERED: TIMOLOL 0.5% OPHTH DROPS ONE (09:00)
[2022-07-25] MEDS ORDERED: EPINEPHrine 1 MG/ML AMP ONE (09:00)
[2022-07-25] MEDS ORDERED: BRIMONIDINE 0.2% OPHTH DROPS 5 ML ONE (09:00)
[2022-07-25] MEDS ORDERED: TRIAMCIN/MOXIFLOX OPHTHALMIC 0.6 ML VIAL IO ONE ×2 (09:00→09:16)
[2022-07-25] MEDS ORDERED: VANCOMYCIN OPHTH (TOPICAL) 10 MG/ML SYRINGE ONE (09:01)
[2022-07-25] MEDS ORDERED: BSS/LIDOCAINE/EPINEPHRINE 1 ML VIAL ONE (09:01)
[2022-07-25] MEDS ORDERED: EPINEPHrine 1 MG/ML AMP IR ONE (09:14)
[2022-07-25] MEDS ORDERED: BRIMONIDINE 0.2% OPHTH DROPS 5 ML OPTH ONE (09:14)
[2022-07-25] MEDS ORDERED: BSS/LIDOCAINE/EPINEPHRINE 1 ML SYRINGE IO ONE (09:15)
[2022-07-25] MEDS ORDERED: TIMOLOL 0.5% OPHTH DROPS OPTH ONE (09:15)
[2022-07-25] MEDS ORDERED: VANCOMYCIN OPHTH (TOPICAL) 10 MG/ML SYRINGE TOP ONE (09:16)
[2022-07-25] MEDS ORDERED: PROPARACAINE 0.5% OPHTH DROPS 15 ML EACHEYE ONE (09:16)
--- NOTE | 2022-07-25 09:36 | OPERATIVE REPORT ---
Operative Report - Other Other Information/Narrative: Date of Surgery: 07/25/22 Preop Dx: Visually significant cataract right eye. This was the first cataract surgery. Postop Dx: Same Procedure: Phacoemulsification with posterior chamber intraocular lens implant right eye Surgeon: Dr. Kobe Molina Anesthesia: Monitored anesthesia care Complications: None Operative Indications: This is a 82-year-old F with progressive vision loss in the right eye due to 2-3+ nuclear sclerotic, 2-3+ cortical, and 1-2+ posterior subcapsular cataract. Best corrected visual acuity was 20/50 with glare to 20/500 vision in the right eye. Indications for surgery were: - Difficulty seeing words, closed captions, or game scores on TV - Difficulty driving in low light or at night - Difficulty driving at night because of headlights from other vehicles - Difficulty with glare or bright lights in any situation The patient was consented at length concerning the risks and benefits of cataract surgery after which the patient expressed a desire to proceed with surgery. Operative Procedure: The patient was taken into OR#3 and placed under monitored anesthesia care. A surgical time-out was conducted confirming correct patient, correct procedure, and correct surgical site. The patient was given topical anesthesia and then prepped and draped in the usual sterile fashion. The eye was entered at the 6 and 3 oclock positions. Intracameral Shugarcaine was injected into the anterior chamber followed by a dispersive viscoelastic. A continuous-tear curvilinear capsulorhexis was performed. The nucleus was hydrodissected and phacoemulsified. The cortex was evacuated using automated infusion and aspiration. A cohesive viscoelastic was injected into the capsular bag and a 19.5 diopter intraocular lens was inserted into the bag. Infusion and aspiration were used to evacuate the viscoelastic materials from the eye. The wounds were hydrated and the eye inflated to physiologic pressure using balanced salt solution. Approximately 0.25ml of a mixture of triamcinolone and moxifloxacin was injected trans-sclerally into the vitreous in the inferotemporal quadrant using a 30 gauge cannula. An additional 0.25ml of a mixture of triamcinolone and moxifloxacin was injected subconjunctivally in the superior quadrant for infection and inflammation prophylaxis. Wound integrity was checked with Weck-Ileana sponges. The patient was taken from the operating room in good condition and given post-op instructions.
[2022-07-25 09:49] VITALS: BP 136/93
--- NOTE | 2022-07-25 10:04 | ANESTHESIA POST OP EVALUATION ---
Anesthesia Post Eval - Post Anesthesia Eval Vitals: Last Vital Signs Temp 36.1 C L 07/25/22 09:31 Pulse 81 07/25/22 09:47 Resp 16 07/25/22 09:47 BP 136/93 H 07/25/22 09:47 Pulse Ox 98 07/25/22 09:47 O2 Flow Rate 3 07/25/22 08:15 CV Function Including HR & BP: Stable Pain Control: Satisfactory Nausea & Vomiting: Negative Mental Status: Baseline Respiratory Status: Airway Patent Hydration Status: Satisfactory Anesthesia Complications: None
[2022-07-25] MEDS ORDERED: PROPARACAINE 0.5% OPHTH DROPS 15 ML ONE (11:06)
== END 2022-07-25 07:35 | disposition home or self-care (01) ==
LOC: SDS 07:34
PROVIDERS: ATTEND Ophthalmology
DX: H25.811 Combined forms of age-related cataract, right eye (principal); E66.01 Morbid (severe) obesity due to excess calories; Z68.42 Body mass index [BMI] 45.0-49.9, adult; G47.30 Sleep apnea, unspecified; I25.2 Old myocardial infarction; J44.9 Chronic obstructive pulmonary disease, unspecified; Z87.891 Personal history of nicotine dependence; F41.9 Anxiety disorder, unspecified
CPT/HCPCS: 66984; A9270; J3490; J7120

== ENCOUNTER 2022-09-05 08:23 | Day surgery (SDC) | payer MEDICARE, BC, OTHER ==
[~2022-09-05 08:23] MED LIST changes: +PROPARACAINE 0.5% OPHTH DROPS 15 ML ONE
[2022-09-05] MEDS ORDERED: LACTATED RINGERS 1,000 ML IV ONE (08:50)
--- NOTE | 2022-09-05 09:01 | ANESTHESIA ---
Pre-Anesthesia VS, & Labs - Diagnosis L cataract - Procedure L PhacoIOL Vital Signs: Temp Pulse Resp BP Pulse Ox O2 Flow Rate 36.5 C 80 18 153/75 H 94 2 09/05/22 08:51 09/05/22 08:51 09/05/22 08:51 09/05/22 08:51 09/05/22 08:51 09/05/22 08:51 Height: 5 ft Weight (kg): 114.5 kg Body Mass Index: 49.3 BMI Classification: Morbidly Obese - NPO >8 hours - Is Patient ?: No Home Medications and Allergies Buspirone HCl 10 mg PO TID 12/31/12 Metoprolol Succinate [Toprol Xl] 25 mg PO BID 12/31/12 Levothyroxine [Synthroid] 50 mcg PO QDAC 01/01/13 Omeprazole 20 mg PO DAILY 01/01/13 Timolol 0.5% Ophth Drops [Timoptic] 1 drops OPTH BID 01/01/13 Travoprost [Travatan Z] 0.004 ml OP DAILY 01/01/13 Escitalopram [Lexapro] 20 mg PO DAILY 12/12/17 Albuterol 2.5 mg INH Q4H PRN 05/29/20 Atorvastatin [Lipitor] 20 mg PO DAILY 05/29/20 Fluticasone Propion/Salmeterol [Fluticasone-Salmeterol 250-50] 1 puffs IN BID 05/29/20 LORazepam [Ativan] 1 mg PO PRN PRN 05/29/20 Mirtazapine [Remeron] 7.5 mg PO DAILY 05/29/20 Rivaroxaban [Xarelto] 20 mg PO DAILY 05/29/20 Spironolactone [Aldactone] 25 mg PO DAILY 05/29/20 Tiotropium [place] [Spiriva] 1 puffs INH DAILY 05/29/20 Allergies/Adverse Reactions: Allergies Allergy/AdvReac Type Severity Reaction Status Date / Time phenytoin sodium * Allergy Intermediate Rash Verified 09/05/22 08:58 [From Dilantin] phenytoin sodium extended * Allergy Intermediate Rash Verified 09/05/22 08:58 [From Dilantin] Sulfa (Sulfonamide Allergy Intermediate Rash Verified 09/05/22 08:58 Antibiotics) Anes History & Medical History - Anesthetic History Anesthesia Complications: reports: No previous complications Family history of Anesthesia Complications: Denies Family history of Malignant Hyperthermia: Denies - Medical History Cardiovascular: reports: Hypertension, High cholesterol, Pulmonary embolism, [place] Pulmonary: reports: Sleep apnea, Other (o2 dependent 4L/min) Gastrointestinal: reports: GERD, Hiatal hernia, Diverticulitis, Other Urinary: reports: None Musculoskeletal: reports: Osteoarthritis Endocrine/Autoimmune: reports: HyPOthyroidism Blood Disorders: reports: Anemia Skin: reports: None Smoking Status: Never smoker - Surgical History General: reports: Cholecystectomy, Bowel surgery, Colonoscopy Eyes Ears Nose Throat (EENT): reports: Cataracts Cardiothoracic: reports: Angioplasty Gynecologic: reports: Hysterectomy Exam General: Alert, Oriented x3, Cooperative Dental: WNL Mouth Openin Fingerbreadth Neck Mobility: Reduced Mallampati classification: III Thyromental Distance: less than 4 cm Respiratory: Decreased breath sounds Cardiovascular: Regular rate Plan Anesthesia Type: MAC Consent for Procedure(s) Verified and Reviewed: Yes Code Status: Attempt Resuscitation ASA classification: 4-Incapacitating disease Is this case an emergency?: No
[2022-09-05] MEDS ORDERED: BRIMONIDINE 0.2% OPHTH DROPS 5 ML OPTH ONE (09:47)
[2022-09-05] MEDS ORDERED: BRIMONIDINE 0.2% OPHTH DROPS 5 ML ONE (09:48)
[2022-09-05] MEDS ORDERED: VANCOMYCIN OPHTH (TOPICAL) 10 MG/ML SYRINGE ONE (09:48)
[2022-09-05] MEDS ORDERED: BSS/LIDOCAINE/EPINEPHRINE 1 ML VIAL ONE (09:48)
[2022-09-05] MEDS ORDERED: EPINEPHrine 1 MG/ML AMP IR ONE (09:48)
[2022-09-05] MEDS ORDERED: TIMOLOL 0.5% OPHTH DROPS ONE (09:48)
[2022-09-05] MEDS ORDERED: TIMOLOL 0.5% OPHTH DROPS OPTH ONE (09:48)
[2022-09-05] MEDS ORDERED: TRIAMCIN/MOXIFLOX OPHTHALMIC 0.6 ML VIAL IO ONE ×2 (09:48→09:49)
[2022-09-05] MEDS ORDERED: EPINEPHrine 1 MG/ML AMP ONE (09:48)
[2022-09-05] MEDS ORDERED: BSS/LIDOCAINE/EPINEPHRINE 1 ML SYRINGE IO ONE (09:49)
[2022-09-05] MEDS ORDERED: PROPARACAINE 0.5% OPHTH DROPS 15 ML EACHEYE ONE (09:49)
[2022-09-05] MEDS ORDERED: VANCOMYCIN OPHTH (TOPICAL) 10 MG/ML SYRINGE TOP ONE (09:50)
[2022-09-05] MEDS ORDERED: MIDAZOLAM 2 MG/2 ML VIAL ONE (09:52)
[2022-09-05] MEDS ORDERED: LACTATED RINGERS 750 ML IV ONE (10:15)
--- NOTE | 2022-09-05 10:18 | OPERATIVE REPORT ---
Operative Report - Other Other Information/Narrative: Date of Surgery: 09/05/22 Preop Dx: Visually significant cataract left eye. Cataract surgery was performed in the right eye on . Postop Dx: Same Procedure: Phacoemulsification with posterior chamber intraocular lens implant left eye Surgeon: Dr. Kobe Molina Anesthesia: Monitored anesthesia care Complications: None Operative Indications: This is a 82-year-old F with progressive vision loss in the left eye due to 2-3+ nuclear sclerotic, 2-3+ cortical, and 1-2+ posterior subcapsular cataract. Best corrected visual acuity was 20/50 with glare to 20/200 vision in the left eye. Indications for surgery were: - Overall decrease in vision - Difficulty reading - Difficulty driving in low light or at night - Difficulty driving at night because of headlights from other vehicles - Difficulty with glare or bright lights in any situation The patient was consented at length concerning the risks and benefits of cataract surgery after which the patient expressed a desire to proceed with surgery. Operative Procedure: The patient was taken into OR#3 and placed under monitored anesthesia care. A surgical time-out was conducted confirming correct patient, correct procedure, and correct surgical site. The patient was given topical anesthesia and then prepped and draped in the usual sterile fashion. The eye was entered at the 6 and 3 oclock positions. Intracameral Shugarcaine was injected into the anterior chamber followed by a dispersive viscoelastic. A continuous-tear curvilinear capsulorhexis was performed. The nucleus was hydrodissected and phacoemulsified. The cortex was evacuated using automated infusion and aspiration. A cohesive viscoelastic was injected into the capsular bag and a 20.5 diopter intraocular lens was inserted into the bag. Infusion and aspiration were used to evacuate the viscoelastic materials from the eye. The wounds were hydrated and the eye inflated to physiologic pressure using balanced salt solution. Approximately 0.25ml of a mixture of triamcinolone and moxifloxacin was injected trans-sclerally into the vitreous in the inferotemporal quadrant using a 30 gauge cannula. An additional 0.25ml of a mixture of triamcinolone and moxifloxacin was injected subconjunctivally in the superior quadrant for infection and inflammation prophylaxis. Wound integrity was checked with Weck-Ileana sponges. The patient was taken from the operating room in good condition and given post-op instructions.
[2022-09-05 11:06] VITALS: BP 110/80
--- NOTE | 2022-09-05 15:50 | ANESTHESIA POST OP EVALUATION ---
Anesthesia Post Eval - Post Anesthesia Eval Vitals: Last Vital Signs Temp 36.3 C L 09/05/22 10:40 Pulse 82 09/05/22 10:40 Resp 14 09/05/22 10:40 BP 110/80 09/05/22 10:40 Pulse Ox 97 09/05/22 10:40 O2 Flow Rate 2 09/05/22 08:51 CV Function Including HR & BP: Stable Pain Control: Satisfactory Nausea & Vomiting: Negative Mental Status: Baseline Respiratory Status: Airway Patent Hydration Status: Satisfactory Anesthesia Complications: None
== END 2022-09-05 08:24 | disposition home or self-care (01) ==
LOC: SDS 08:23
PROVIDERS: ATTEND Ophthalmology
DX: H25.812 Combined forms of age-related cataract, left eye (principal); J44.9 Chronic obstructive pulmonary disease, unspecified; I10 Essential (primary) hypertension; E66.01 Morbid (severe) obesity due to excess calories; Z68.42 Body mass index [BMI] 45.0-49.9, adult
CPT/HCPCS: 66984; A9270; J3490; J7120

== ENCOUNTER 2022-09-16 09:40 | Outpatient (CLI) | payer MEDICARE, BC, OTHER ==
[2022-09-16 12:23] LABS: BASOPHILS % (AUTO) 0.5 %; EOSINOPHILS # (AUTO) 0.3 10^3/uL (0.0-0.7); EOSINOPHILS % (AUTO) 3.1 %; HCT - HEMATOCRIT 49.8 % (37.0-47.0); HGB - HEMOGLOBIN 14.5 g/dL (12.0-16.0); LYMPHOCYTES # (AUTO) 1.8 10^3/uL (1.5-3.5); MEAN CORPUSCULAR HEMOGLOBIN 29.6 pg (27.0-31.0); MEAN CORPUSCULAR HGB CONC 29.1 g/dL (32.0-36.0); MEAN CORPUSCULAR VOLUME 101.6 fL (81.0-99.0); MEAN PLATELET VOLUME 12.3 fL (7.9-10.8); MONOCYTES # (AUTO) 0.8 10^3/uL (0.0-1.0); MONOCYTES % (AUTO) 8.8 %; NEUTROPHILS # (AUTO) 5.6 10^3/uL (1.5-6.6); NEUTROPHILS % (AUTO) 66.1 %; PLT - PLATELET COUNT 177 10^3/uL (130-450); RED CELL DISTRIBUTION WIDTH 13.9 % (12.0-15.0); WHITE BLOOD COUNT 8.5 x10^3/uL (4.8-10.8)
[2022-09-16 12:42] LABS: ESTIMATED AVERAGE GLUCOSE 148 mg/dL (70-100); HEMOGLOBIN A1c% 6.8 % (4.27-6.07)
[2022-09-16 12:49] LABS: ALBUMIN 3.7 g/dL (3.2-5.5); ALBUMIN/GLOBULIN RATIO 1.3 (1.0-2.2); ALKALINE PHOSPHATASE 58 IU/L (42-121); ALT ALANINE AMINOTRANSFERASE 30 IU/L (10-60); AST ASPARTATE AMINOTRANSFERASE 17 IU/L (10-42); BILIRUBIN,TOTAL 0.6 mg/dL (0.2-1.0); BUN - BLOOD UREA NITROGEN 16 mg/dL (6-20); CALCIUM 9.7 mg/dL (8.5-10.3); CARBON DIOXIDE - CO2 34 mmol/L (21-32); CHLORIDE 102 mmol/L (101-111); CHOL/HDL RATIO 3.2 (<4.4); CHOLESTEROL 164 mg/dL; CREATININE 0.9 mg/dL (0.4-1.0); GFR - MDRD 60 (>89); GLUCOSE 132 mg/dL (70-100); HDL CHOLESTEROL 52 mg/dL; LDL CHOLESTEROL,CALCULATED 77 mg/dL; LDL/HDL RATIO 1.5 (<4.4); POTASSIUM 4.1 mmol/L (3.5-5.0); SODIUM 143 mmol/L (135-145); TOTAL PROTEIN 6.6 g/dL (6.7-8.2); TRIGLYCERIDES 173 mg/dL; VLDL CHOLESTEROL 35 mg/dL
[2022-09-16 12:57] LABS: THYROID STIMULATING HORMONE 2.88 uIU/mL (0.34-5.60)
== END 2022-09-16 09:41 | disposition home or self-care (01) ==
LOC: LAB.N 09:40
PROVIDERS: ATTEND Internal Medicine
DX: E11.9 Type 2 diabetes mellitus without complications (principal); E78.5 Hyperlipidemia, unspecified; E03.9 Hypothyroidism, unspecified
CPT/HCPCS: 36415; 80053; 80061; 83036; 83721; 84443; 85025

== ENCOUNTER 2023-07-23 13:23 | Outpatient (CLI) | payer MEDICARE, BC, OTHER | END 2023-07-23 23:59 | disposition critical access hospital (66) | LOC: EMS 13:23 | DX: M25.512 Pain in left shoulder (principal); S01.112A Laceration without foreign body of left eyelid and periocular area, initial encounter; W01.198A Fall on same level from slipping, tripping and stumbling with subsequent striking against other object, initial encounter; Y93.01 Activity, walking, marching and hiking; Y92.59 Other trade areas as the place of occurrence of the external cause | CPT/HCPCS: A0425; A0427 ==

== ENCOUNTER 2023-07-23 13:44 | Emergency (ER) | payer MEDICARE, BC, OTHER ==
--- NOTE | 2023-07-23 14:02 | ED Physician Documentation ---
History of Present Illness - Stated complaint Stated Complaint: GLF - Chief complaint Chief Complaint: Trauma Hd/Nk - History obtained from History obtained from: Patient, EMS - History of Present Illness Timing: Today Pain level max: 5 Pain level now: 5 - Additonal information Additional information: Patient is an 83-year-old female who presents to the emergency department after a ground-level fall today on the sidewalk. She landed on her left shoulder causing pain to the left shoulder. Also has an abrasion near the left eye. She is on Xarelto for history of a pulmonary embolus. She was given 150 mcg of fentanyl en route by EMS. No back pain. No hip pain., No knee pain. No loss of consciousness. No vomiting. No headache. Better with fentanyl, worse with moving. Patient was activated as a modified trauma. Review of Systems Constitutional: denies: Fever, Chills GI: denies: Nausea, Vomiting, Diarrhea : denies: Dysuria, Frequency, Hesitancy Skin: denies: Rash Neurologic: denies: Focal weakness, Numbness, Confused, Altered mental status, LOC PD PAST MEDICAL HISTORY - Past Medical History Past Medical History: Yes Cardiovascular: Hypertension, High cholesterol, Pulmonary embolism, HI Respiratory: COPD, Sleep apnea, Other Neuro: CVA Endocrine/Autoimmune: HyPOthyroidism GI: GERD, Hiatal hernia, Diverticulitis, Other : None HEENT: Chronic hearing loss Psych: Anxiety, Panic attacks Musculoskeletal: Osteoarthritis Derm: None - Past Surgical History Past Surgical History: Yes General: Cholecystectomy, Bowel surgery, 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 Cardiovascular: Angioplasty HEENT: Cataracts - Present Medications Home Medications: Ambulatory Orders Medication Instructions Recorded Confirmed Buspirone HCl 10 mg PO BID 12/31/12 07/23/23 Metoprolol Succinate [Toprol Xl] 25 mg PO BID 12/31/12 07/23/23 Levothyroxine [Synthroid] 50 mcg PO QDAC 01/01/13 07/23/23 Timolol 0.5% Ophth Drops [Timoptic] 1 drops OPTH BID 01/01/13 07/23/23 Travoprost [Travatan Z] 0.004 ml OP HS 01/01/13 07/23/23 Escitalopram [Lexapro] 20 mg PO DAILY 12/12/17 07/23/23 Albuterol 2.5 mg INH Q4H PRN 05/29/20 07/23/23 Atorvastatin [Lipitor] 20 mg PO HS 05/29/20 07/23/23 Fluticasone Propion/Salmeterol 1 puffs IN BID 05/29/20 07/23/23 [Fluticasone-Salmeterol 250-50] LORazepam [Ativan] 1 mg PO BID PRN 05/29/20 07/23/23 Mirtazapine [Remeron] 7.5 mg PO DAILY 05/29/20 07/23/23 Rivaroxaban [Xarelto] 20 mg PO DAILY 05/29/20 07/23/23 Spironolactone [Aldactone] 25 mg PO DAILY 05/29/20 07/23/23 Tiotropium Taylor [Spiriva] 1 puffs INH DAILY 05/29/20 07/23/23 Oxycodone HCl/Acetaminophen 1 - 2 each PO Q6H PRN #20 tablet 07/23/23 [Percocet 5-325 mg Tablet] MDD 6 tabs - Allergies Allergies/Adverse Reactions: Allergies Allergy/AdvReac Type Severity Reaction Status Date / Time phenytoin sodium * Allergy Intermediate Rash Verified 07/23/23 13:52 [From Dilantin] phenytoin sodium extended * Allergy Intermediate Rash Verified 07/23/23 13:52 [From Dilantin] Sulfa (Sulfonamide Allergy Intermediate Rash Verified 07/23/23 13:52 Antibiotics) - Social History Does the pt smoke?: No Smoking Status: Former smoker Does the pt drink ETOH?: No Does the pt have substance abuse?: No - Immunizations Immunizations are current?: Yes - POLST Patient has POLST: No PD ED PE NORMAL - Vitals Vital signs reviewed: Yes - General General: Alert and oriented X 3, No acute distress - HEENT HEENT: PERRL, EOMI, Moist mucous membranes, Other (Abrasion/ecchymosis to the periorbital area of the left eye. Otherwise no facial bone tenderness. No palpable skull fractures. No scalp hematomas) - Neck Neck: Other (Mild upper C-spine tenderness to palpation. No step-off or deformity.) - Cardiac Cardiac: RRR, Strong equal pulses - Respiratory Respiratory: No respiratory distress, Clear bilaterally - Abdomen Abdomen: Soft, Non tender, Non distended - Back Back: No spinal TTP - Derm Derm: Warm and dry - Extremities Extremities: Other (L shoulder - TTP diffusely over the glenohumeral joint. limited ROM 2/2 pain. Otherwise atraumatic exam of all major extremities/joints) - Neuro Neuro: Alert and oriented X 3 - Psych Psych: Normal mood, Normal affect Results - Vitals Vitals: Vital Signs - 24 hr 07/23/23 07/23/23 07/23/23 13:53 13:57 14:27 Temperature 36.1 C L Heart Rate 73 73 65 Respiratory 20 17 15 Rate Blood Pressure 145/88 H 139/68 H O2 Saturation 91 L 92 90 L 07/23/23 07/23/23 07/23/23 15:00 15:30 16:00 Temperature Heart Rate 63 72 73 Respiratory 15 22 20 Rate Blood Pressure 137/81 H 134/77 H 137/78 H O2 Saturation 94 94 94 07/23/23 07/23/23 16:30 17:00 Temperature Heart Rate 73 66 Respiratory 19 21 Rate Blood Pressure 151/79 H 156/84 H O2 Saturation 97 97 Oxygen O2 Source Room air - Rads (name of study) head CT Relevant Findings:: Final report received, See rad report maxillofacial CT Relevant Findings:: Final report received, See rad report cervical spine CT Relevant Findings:: Final report received, See rad report L shoulder xray Relevant Findings:: Final report received, See rad report PD Medical Decision Making - ED course Complexity details: reviewed results, re-evaluated patient, considered differential, d/w patient, d/w family, d/w documentation consultant ED course: No acute findings on head CT, cervical spine CT, maxillofacial CT. She does have a comminuted complicated fracture of her humeral head/neck with associated possible subluxation. Orthopedics is not available here for the next 2 days. I consulted orthopedics at [facility], discussed the case with Dr. Morfin at [facility] who reviewed the images. He feels that the abnormal positioning of the joint could be due to deltoid atony. Recommends a sling, pain medication and follow-up in clinic next week. He states that she may need a total shoulder replacement. Patient does have a history of COPD, is oxygen dependent. Pain well-controlled here. Neurovascularly intact. No lacerations that need repair. Wound care performed by RN. We will have the patient follow-up with [facility] for further care. Patient counseled regarding signs and symptoms for which I believe and urgent re-evaluation would be necessary. Patient with good understanding of and agreement to plan and is comfortable going home at this time This document was made in part using voice recognition software. While efforts are made to proofread this document, sound alike and grammatical errors may occur. Departure - Departure Disposition: 01 Home, Self Care Clinical Impression: Fx humeral neck Qualifiers: Encounter type: initial encounter Fracture type: closed Laterality: left Qualified Code(s): S42.212A - Unspecified displaced fracture of surgical neck of left humerus, initial encounter for closed fracture Condition: Good Instructions: ED Fx Upper Ext Follow-Up: Demian Shelton MD [Primary Care Provider] - Within 1 week Prescriptions: Oxycodone HCl/Acetaminophen [Percocet 5-325 mg Tablet] 1 - 2 each PO Q6H PRN #20 tablet MDD 6 tabs PRN Reason: pain Comments: Your prescriptions were sent to [facility] in [place]. Please use the medication as needed for pain. Please stay in the sling. It is important to follow-up with orthopedics at [facility]. They should call you tomorrow for an appointment on July 29 with the orthopedic clinic, [facility], likely Dr. Rosado. If you do not hear from them on , I would recommend calling them at . I spoke with Dr. Bhardwaj today I am prescribing a short course of narcotic pain medication for you. These are potentially dangerous and addictive medications that should be used carefully. These medications may constipate you. Take an mijq-vmc-bhpwfio stool softener (docusate) twice daily with plenty of water while taking these medications. If you go 24 hours without a bowel movement, take cwqu-kvw-rznzjny miralax, per package instructions. Do not drink or drive while taking these medications. If you received narcotic or sedating medications while in the emergency department, do not drive for 24 hours. Store this medication in a safe, secure place and out of reach of children. It is a violation of federal law to give or sell this medication to another person or to use in a manner other than prescribed. The ED will not refill narcotic prescriptions, including prescriptions lost or stolen. To dispose of unwanted medications: 1. [facility] at [address] in [place] has a medication drop box. They accept prescription medications (in pill form) Friday through Friday 9:00 a.m. to 5:00 p.m. 2. The [facility] accepts prescription medications (in pill form only) for disposal year round. Call for more information. 3. Contact the [facility] for the next [facility] sponsored prescription drug collection event. , [phone], or [phone]; Forms: PCP List Discharge Date/Time: 07/23/23 18:01
--- NOTE | 2023-07-23 14:39 | XRAY Report ---
PROCEDURE: Shoulder 2+V LT INDICATIONS: fall, pain TECHNIQUE: 3 views of the shoulder were acquired. COMPARISON: None. FINDINGS: Bones: 2 part fracture of the humeral neck. Inferior subluxation of the humerus. Soft tissues: No suspicious soft tissue calcifications. The visualized lungs are within normal limi ts. IMPRESSION: 2 part fracture of the humeral neck. Inferior subluxation of the humerus likely due to a large joint effusion, less likely dislocation giv en alignment on the transscapular Y-view. Reviewed by: Pablo Oscar MD on 07/23/2023 2:38 PM PDT Approved by: Pablo Oscar MD on 07/23/2023 2:38 PM PDT Station ID: [id number]
--- NOTE | 2023-07-23 14:41 | CT Report ---
PROCEDURE: Maxillofacial WO INDICATIONS: fall, pain TECHNIQUE: Noncontrast 1.5 mm thick axial images acquired from the mandible through the frontal sinuses, with co velasquez and sagittal reformatting. For radiation dose reduction, the following was used: automated ex posure control, adjustment of mA and/or kV according to patient size. COMPARISON: None. FINDINGS: Image quality: Excellent. Bones and teeth: Orbital win are intact. Sinus win show no fracture or deformity. Nasal bones and septum are intact. Visualized portions of the mandible demonstrate no fractures or subluxation. Zygomatic arches are intact. Pterygoid plates are intact. Visualized portions of the skull base an d auditory canals are intact. Sinuses: Paranasal sinuses are aerated, without fluid levels, mucosal thickening, or mucoceles. Mas toid air cells are aerated. Soft tissues: No edema, masses, or fluid collections. No enlarged lymph nodes. No soft tissue lace rations or debris. Vascular: Visualized vascular structures appear normal in the absence of contrast. Bony vascular fo ramina and canals are intact. IMPRESSION: No displaced fracture or air-fluid level. Reviewed by: Pablo Oscar MD on 07/23/2023 2:39 PM PDT Approved by: Pablo Oscar MD on 07/23/2023 2:39 PM PDT Station ID: [id number]
--- NOTE | 2023-07-23 14:42 | CT Report ---
PROCEDURE: Head WO INDICATIONS: fall, pain TECHNIQUE: Noncontrast 4.5 mm thick angled axial sections acquired from the foramen magnum to the vertex. For r adiation dose reduction, the following was used: automated exposure control, adjustment of mA and/or kV according to patient size. COMPARISON: None. FINDINGS: Image quality: Excellent. CSF spaces: Basal cisterns are patent. No extra-axial fluid collections. Ventricles are normal in size and shape. Brain: No midline shift. No intracranial masses or hemorrhage. Flor-white matter interface is norm al. Leukoaraiosis, commonly caused by chronic small vessel ischemic disease. Age-related volume loss . Encephalomalacia/gliosis of the right MCA territory. Skull and face: Calvarium and visualized facial bones are intact, without suspicious lesions. Sinuses: Visualized sinuses and mastoids are clear. IMPRESSION: No acute intracranial pathology. Reviewed by: Pablo Oscar MD on 07/23/2023 2:40 PM PDT Approved by: Pablo Oscar MD on 07/23/2023 2:40 PM PDT Station ID: [id number]
--- NOTE | 2023-07-23 14:43 | CT Report ---
PROCEDURE: Cervical Spine WO INDICATIONS: fall, pain TECHNIQUE: Noncontrast 3 mm thick sections acquired from the skull base to the T4 level. Sagittal and coronal r eformats were then constructed. For radiation dose reduction, the following was used: automated exp osure control, adjustment of mA and/or kV according to patient size. COMPARISON: None. FINDINGS: Image quality: Suboptimal due to motion artifact. Bones: No fractures or dislocations. Visualized superior ribs are intact. Moderate, multilevel disc height loss and diffuse facet arthrosis. Soft tissues: Prevertebral soft tissues are normal in thickness. No paravertebral hematomas. No ap ical pneumothoraces. IMPRESSION: No acute, displaced fracture or traumatic subluxation. Reviewed by: Pablo Oscar MD on 07/23/2023 2:42 PM PDT Approved by: Pablo Oscar MD on 07/23/2023 2:42 PM PDT Station ID: [id number]
[2023-07-23] MEDS: HYDROmorphone 1 MG/ML CARPUJECT IVP STA (15:18)
[2023-07-23] MEDS: oxyCODONE 5 MG TABLET PO STA (17:14)
[2023-07-23 17:37] VITALS: BP 156/84; O2SAT 97
== END 2023-07-23 18:01 | disposition home or self-care (01) ==
LOC: EDUNIT# → ED 13:44
DX: S00.212A Abrasion of left eyelid and periocular area, initial encounter (principal); S42.212A Unspecified displaced fracture of surgical neck of left humerus, initial encounter for closed fracture; W01.0XXA Fall on same level from slipping, tripping and stumbling without subsequent striking against object, initial encounter; Y92.480 Sidewalk as the place of occurrence of the external cause; J44.9 Chronic obstructive pulmonary disease, unspecified; Z87.891 Personal history of nicotine dependence; Z99.81 Dependence on supplemental oxygen
CPT/HCPCS: 70450; 70486; 72125; 73030; 96374; 99284; 99285; A9270; J1170